=== PATIENT | male | born 1960 | race Caucasian/White ===

== ENCOUNTER 2019-06-19 02:11 | Observation (INO) | payer MEDICARE, MEDICAID ==
[2019-06-19 02:51] LABS: #Eosinphils 0.2 thou/uL (0.0-0.7); #Lymphocytes 1.9 thou/uL (1.20-3.40); #Monocytes 0.4 thou/uL (0.11-0.59); #Neutrophils 4.2 thou/uL (1.40-6.50); %Basophils 0.7 % (0.0-1.0); %Eosinophils 2.8 % (0.0-10.0); %Lymphocytes 27.7 % (21.0-51.0); %Monocytes 6.2 % (0.0-10.0); %Neutrophils 62.5 % (42.0-75.0); Hemoglobin 10.9 g/dL (14.0-18.0); Mean Corpuscular HGB CONC 33.1 g/dL (32.0-36.0); Mean Corpuscular Hemoglobin 28.3 pg (27.0-31.0); Mean Corpuscular Volume 85.3 fL (78.0-98.0); Mean Platelet Volume 9.7 fL (7.4-10.4); Platelet Count 172 thou/uL (130-400); Red Blood Cell (RBC) Count 3.86 mill/uL (4.70-6.10); White Blood Cell (WBC) Count 6.7 thou/uL (4.8-10.8)
[2019-06-19] MEDS ORDERED: Morphine 4 MG/ML VIAL ONE ×2 (02:54→04:12)
[2019-06-19] MEDS ORDERED: Ondansetron PF 4 MG/2 ML Vial ONE (02:56)
[2019-06-19 03:12] LABS: ALT (SGPT) 19 U/L (8-55); AST (SGOT) 23 U/L (5-34); Albumin 4.3 g/dL (3.5-5.0); Alkaline Phosphatase 72 U/L (40-150); Anion Gap 15 mmol/L (10-20); BUN (Urea Nitrogen) 16 mg/dL (8.4-25.7); Bilirubin, Total 0.9 mg/dL (0.2-1.2); Calc. Creatinine Clearance 0 mL/min (70-130); Calcium 9.3 mg/dL (7.8-10.44); Carbon Dioxide 24 mmol/L (22-29); Chloride 105 mmol/L (98-107); Estimated GFR-MDRD 54; Globulin 3.1 g/dL (2.4-3.5); Glucose 112 mg/dL (70-105); Potassium 4.4 mmol/L (3.5-5.1); Protein, Total 7.4 g/dL (6.0-8.3); Sodium 140 mmol/L (136-145)
[2019-06-19] MEDS ORDERED: Nitroglycerin 0.4 MG TAB (25 Tab Bottle) PO PRN (03:50)
[2019-06-19] MEDS ORDERED: Aspirin 325 MG TAB PO SCH (04:00)
[2019-06-19] MEDS ORDERED: Morphine 4 MG/ML VIAL SLOW IVP PRN (04:05)
--- NOTE | 2019-06-19 04:17 | PDOC.EVN ---
Event Note - Event Note Event Note: [id number] H&P dictated
[2019-06-19 05:06] VITALS: BMI 33.7
--- NOTE | 2019-06-19 05:23 | HP ---
CHIEF COMPLAINT: Chest pain. HISTORY OF PRESENT ILLNESS: Mr. Chacon is a 59-year-old male with significant cardiac history, presents to [facility] ED with chief complaint of sudden onset of chest pain that began while the patient was driving a long road trip last night. The patient went to [facility] ED, with chest pain, diaphoresis, nausea and left upper extremity paresthesia, left jaw paresthesia. The patient was evaluated. The physician recommended his admission. The patient agreed to admission, but choose to come to our ER instead of using the ambulance transport. The patient reports syncopal episodes 11 weeks ago ? cardiac arrest. He stated that they have to perform CPR and cardioversion back in [place]. After the event, pacemaker was placed. He has a history of 5-vessel coronary artery bypass graft surgery in 2011, all of them closed. He had 3 cardiac stents placed in 2012. He states that he takes Eliquis, Brilinta, aspirin. In [facility] ED, the patient was given one dose of subcutaneous Lovenox. Currently, the patient is still complaining of chest pain, but to a lesser degree. The patient is going to be admitted to the hospital for further management. PAST MEDICAL HISTORY: 1. Myocardial infarction. 2. Cardiac arrest ? 3. Heart failure. 4. Hyperlipidemia. 5. Diabetes type 2. 6. Hypertension. PAST SURGICAL HISTORY: 1. Appendectomy. 2. Tonsillectomy. 3. Coronary artery bypass graft surgery. 4. Five stents. 5. Cardiac pacemaker. SOCIAL HISTORY: Denies smoking, alcohol drinking, or drug abuse. FAMILY HISTORY: Reviewed and noncontributory. ALLERGIES: ALLERGIC TO FENTANYL, HYDROCODONE, LORTAB, PENICILLIN, TORADOL. HOME MEDICATIONS: Please see home medication reconciliation form for updated medications. REVIEW OF SYSTEMS: Review of 14 systems is negative except what is mentioned in the history of present illness. PHYSICAL EXAMINATION: GENERAL: The patient is awake, alert, in mild distress. VITAL SIGNS: Blood pressure 138/73, pulse is 63, respiratory rate 17, temperature 98. HEAD AND NECK: Normocephalic, atraumatic. Neck is supple. No JVD. CHEST: Fair bilateral air entry. Scar from previous sternotomy. HEART: S1, S2. Regular. ABDOMEN: Obese, soft. Bowel sounds present. NEUROLOGIC: Awake, alert, oriented x3. PSYCH: Normal mood. EXTREMITIES: No clubbing or cyanosis. LABORATORY DATA: Sodium 140, potassium 4.4, BUN is 16, creatinine 1.3, glucose 112. WBC 6.7, hemoglobin 10.9. Troponin less than 0.01. BNP 47. EKG showed atrial paced rhythm, incomplete right bundle-branch block. ASSESSMENT AND PLAN: Mr. Chacon is a 59-year-old male with significant cardiac history, presenting to the emergency room with chest pain. 1. Acute chest pain, rule out acute coronary syndrome. 2. Coronary artery disease with history of coronary artery bypass graft surgery, multiple stents. 3. Hypertension. 4. Hyperlipidemia. 5. History of cardiac arrest. 6. Diabetes. PLAN: 1. Admit. 2. Aspirin. 3. We will keep the patient n.p.o. for now until the patient is reassessed in a.m. 4. Serial cardiac enzymes. 5. May need to consult Cardiology in a.m. if chest pain persists or if his troponin increases given his significant cardiac history. 6. Continue home anticoagulation. As per the patient, he is on Eliquis. Also, he was given one dose of Lovenox in the ED. 7. Reconcile home medications. 8. DVT prophylaxis. Continue home anticoagulant. 9. Expected length of stay, at least one midnight if patient is stable. Job ID: [id number]
[2019-06-19 08:13] LABS: Troponin I Less than 0.010 ng/mL (< 0.028)
[2019-06-19] MEDS ORDERED: Aspirin 325 mg Enteric Coated Tablet PO SCH (09:00)
[2019-06-19] MEDS ORDERED: Metoprolol Tartrate 25 MG TAB PO SCH (09:00)
[2019-06-19] MEDS ORDERED: Enoxaparin Sodium 100 MG/ML SYRINGE SC SCH (09:00)
[2019-06-19 10:45] LABS: Troponin I Less than 0.010 ng/mL (< 0.028)
[2019-06-19] MEDS ORDERED: Nitroglycerin 0.4 MG TAB (25 Tab Bottle) ONE (12:28)
[2019-06-19] MEDS ORDERED: Nitroglycerin 0.4 MG TAB 1 EACH SL PRN (12:29)
[2019-06-19 12:36] VITALS: BP 132/57; TEMP 97.5
--- NOTE | 2019-06-19 12:49 | CON ---
DATE OF CONSULTATION: REASON FOR CONSULTATION: Chest pain. HISTORY OF PRESENT ILLNESS: Mr. Chacon is a 59-year-old gentleman who was passing through. He was driving from [place] to [place] when he developed acute onset chest pain. He was seen and evaluated in [place]. He was told he needed to be sent to [facility]. His own vehicle proceeded to [place]. He states his pain is 8/10. He states his pain has been noted since midnight and has been unremitting. His CKs troponins have been negative x3. His EKG shows atrial pacing with no ST-T wave changes suggesting ischemia. His echo shows a normal LVEF. Mr. Chacon states he had bypass surgery in 2011. He then underwent coronary angiography in 2012 where 3 of 5 grafts were occluded. He underwent stent placement x3. He then states in February of this year, he had a cardiac arrest. He was intubated for 5-7 days. It is unknown whether he underwent coronary angiography. He states no further stents were placed. PAST MEDICAL HISTORY: As above including diabetes mellitus, hyperlipidemia, hypertension, DVT with PE, appendectomy, tonsillectomy, ICD placement. FAMILY HISTORY: Negative for CAD. SOCIAL HISTORY: Negative. No current tobacco or alcohol use. ALLERGIES: FENTANYL, HYDROCODONE, LORTAB, PENICILLIN. REVIEW OF SYSTEMS: A 10-point review of systems is reviewed as above, otherwise negative. PHYSICAL EXAMINATION: GENERAL: He is complaining of 8/10 pain, but appears comfortable. VITAL SIGNS: Blood pressure 128/66, pulse 60, temperature 97.2. NEUROLOGIC: The patient is alert and oriented x3 with no focal neurologic deficits. HEENT: Sclerae without icterus. Mouth has moist mucous membranes with normal pallor. NECK: No JVD. Carotid upstroke brisk. No bruits bilaterally. LUNGS: Clear to auscultation with unlabored respirations. BACK: No scoliosis or kyphosis. CARDIAC: Regular rate and rhythm with normal S1 and S2. No S3 or S4 noted. No significant rubs, murmurs, thrills, or gallops noted throughout the precordium. PMI is not displaced. There is no parasternal heave. ABDOMEN: Soft, nontender, nondistended. No peritoneal signs present. No hepatosplenomegaly. No abnormal striae. EXTREMITIES: 2+ femoral and 2+ dorsalis pedis pulses. No cyanosis, clubbing, or edema. SKIN: No gross abnormalities. PERTINENT LABORATORY DATA: Hemoglobin 10.9, creatinine 1.36, GFR 54. EKG as above. IMPRESSION: 1. Chest pain. 2. Coronary artery disease. 3. Status post stent placement. 4. Status post bypass surgery. 5. Status post previous deep venous thrombosis with pulmonary embolism. 6. Previous cardiac arrest. RECOMMENDATIONS: Certainly difficult case of Mr. Chacon. Mr. Chacon continues to be on Eliquis, Brilinta in addition to aspirin. He received an additional dose of Lovenox this morning. He appears to be fairly anticoagulated. Given that his enzymes have been negative, EKG negative, echo without wall motion abnormalities, we would recommend a more conservative approach. He is at increased risk of bleeding complications given the amount of anticoagulants and antiplatelets he has received. He does appear comfortable. We will proceed with a stress Cardiolite study given that he has continued to have pain to assess for any new areas of ischemia. We will try and obtain hospital records. The patient's current status will be dictated by his current course. If his enzymes are elevated or any further changes that suggest ischemia, we would then proceed with angio, but at this point, the benefits do not outweigh the risks in Mr. Chacon. Job ID: [id number]
--- NOTE | 2019-06-19 14:09 | PRG ---
DATE OF SERVICE: 06/19/2019 After Mr. Chacon had had negative CKs, troponins, in addition to normal appearing echo with no significant EKG changes, I recommended a stress Cardiolite study. We would inject him with sestamibi and assess for ischemia. [place], the nuclear weapons custodian, came up to inject Mr. Chacon. Mr. Chacon refused. He stated that I had personally told him this was not his heart. I walked into the room and tried to re-emphasize that so far this did not appear to be cardiac. The workup was still in progress. I recommended continued troponin levels and we will defer proceeding with angio if needed for several days given his dose of Lovenox this morning in addition to continued Eliquis use. The patient states he would like to go back to [place]. I did state he would have to leave [place] given it was not my recommendation and he stay for continued workup. The patient refused and decided to leave the hospital. The patient did appear comfortable. I did state he should not drive given that he has received morphine. No further recommendations. Job ID: [id number]
--- NOTE | 2019-06-20 08:06 | DIS ---
DATE OF ADMISSION: 06/19/2019 DATE OF DISCHARGE: 06/19/2019 DISCHARGE DIAGNOSES: 1. Chest pain. 2. Presumed unstable angina. 3. Coronary artery disease. 4. Status post cardiac arrest. 5. Diabetes mellitus. 6. Hyperlipidemia. 7. Hypertension. 8. Prior deep venous thrombosis with pulmonary embolism. HOSPITAL COURSE: The patient was admitted with chest pain. While evaluation was still in progress, the patient left against medical advice. Job ID: [id number]
[2019-06-20] MEDS ORDERED: Aspirin 325 mg Enteric Coated Tablet PO SCH (09:00)
--- NOTE | 2019-06-21 07:22 | EKG ---
Test Reason : Blood Pressure : / mmHG Vent. Rate : 060 BPM Atrial Rate : 060 BPM P-R Int : 156 ms QRS Dur : 100 ms QT Int : 416 ms P-R-T Axes : 000 057 046 degrees QTc Int : 416 ms Electronic atrial pacemaker When compared with ECG of 19-JUN-2019 02:17, (Unconfirmed) No significant change was found Confirmed by DR. Maty QUARLES ([id number]) on 06/21/2019 7:22:01 AM Referred By: JADEN Confirmed By:DR. Maty QUARLES
--- NOTE | 2019-06-25 12:11 | EKG ---
Test Reason : Blood Pressure : / mmHG Vent. Rate : 060 BPM Atrial Rate : 060 BPM P-R Int : 148 ms QRS Dur : 096 ms QT Int : 406 ms P-R-T Axes : 110 046 057 degrees QTc Int : 406 ms Atrial-paced rhythm Incomplete right bundle branch block Abnormal ECG Confirmed by FREDDY ROBBINS D.O. ([id number]), editor index RICK DERAS ([id number]) on 06/25/2019 12:11:09 PM Referred By: Confirmed By:FREDDY ROBBINS D.O.
== END 2019-06-19 12:45 | disposition left against medical advice (07) ==
LOC: ERS 02:11 → 2SW 03:50
PROVIDERS: ADMIT Internal Medicine; ATTEND Internal Medicine
DX: R07.9 Chest pain, unspecified (principal); I25.10 Atherosclerotic heart disease of native coronary artery without angina pectoris; I25.2 Old myocardial infarction; E78.5 Hyperlipidemia, unspecified; E11.9 Type 2 diabetes mellitus without complications; I11.0 Hypertensive heart disease with heart failure; I50.9 Heart failure, unspecified; Z86.711 Personal history of pulmonary embolism; Z86.718 Personal history of other venous thrombosis and embolism; Z79.01 Long term (current) use of anticoagulants; Z79.02 Long term (current) use of antithrombotics/antiplatelets; Z79.82 Long term (current) use of aspirin; Z79.84 Long term (current) use of oral hypoglycemic drugs; Z79.899 Other long term (current) drug therapy; Z88.0 Allergy status to penicillin; Z88.5 Allergy status to narcotic agent; Z88.6 Allergy status to analgesic agent; Z88.8 Allergy status to other drugs, medicaments and biological substances; Z95.0 Presence of cardiac pacemaker; Z95.1 Presence of aortocoronary bypass graft; Z95.5 Presence of coronary angioplasty implant and graft; Z53.21 Procedure and treatment not carried out due to patient leaving prior to being seen by health care provider
CPT/HCPCS: 36415; 36416; 83880; 93005; 93010; 93306; 94760; 96372; 96374; 96375; 96376; G0378; J1650; J2270; J2405